=== PATIENT | female | born 1955 | race Hispanic/Latino ===

== ENCOUNTER 2017-02-16 17:25 | Inpatient (IN) | payer BC ==
[2017-02-16] MEDS ORDERED: Sodium Chloride 0.9% 1,000 ML IV STA (17:40)
[2017-02-16 17:41] VITALS: BMI 30.9
[2017-02-16 18:06] LABS: ADD MANUAL DIFF? NO
[2017-02-16 18:13] LABS: BASO # 0.02 K/mm3 (0.0-2.0); BASO % 0.2 % (0.0-3.0); EOS # 1.5 (0.0-0.7); EOS % 14.1 % (1.5-5.0); GRAN # 6.98 (1.4-6.5); GRAN % 67.6 % (50.0-68.0); HEMATOCRIT 34.4 % (36.0-48.0); LYMPH # 1.4 (1.2-3.4); LYMPH % 13.4 % (22.0-35.0); MEAN CELL VOLUME 86.6 fL (80.0-105.0); MEAN CORPUSCULAR HEMOGLOBIN 29.7 pg (25.0-35.0); MEAN CORPUSCULAR HGB CONC 34.3 g/dl (31.0-37.0); MEAN PLATELET VOLUME 9.2 fl (7.0-11.0); MONO # 0.5 (0.1-0.6); MONO % 4.7 % (1.0-6.0); PLATELET COUNT 180 10^3/uL (120.0-450.0); RED CELL DISTRIBUTION WIDTH 13.4 % (11.5-14.5); WHITE BLOOD COUNT 10.3 10^3/ul (4.5-11.0)
[2017-02-16 18:23] LABS: INR 1.05 (0.93-1.08); PARTIAL THROMBOPLASTIN TIME 25.2 Seconds (23.7-30.8)
[2017-02-16 18:30] LABS: ALB/GLOB RATIO 1.2 (1.1-1.8); ALKALINE PHOSPHATASE 109 U/L (38-133); ALT/SGPT 34 U/L (7-56); AST/SGOT 55 U/L (15-39); BILIRUBIN,TOTAL 0.5 mg/dL (0.2-1.3); BLOOD UREA NITROGEN 29 mg/dL (7-21); CALCIUM 9.5 mg/dL (8.4-10.5); CARBON DIOXIDE 26 mmol/L (21-33); CHLORIDE 104 mmol/L (98-107); GFR AFRICAN-AMERICAN > 60; GLUCOSE,RANDOM 108 mg/dL (70-110); MAGNESIUM 1.7 mg/dL (1.7-2.2); POTASSIUM 3.6 mmol/L (3.6-5.0); SODIUM 138 mmol/L (132-148); TOTAL PROTEIN 6.9 g/dL (5.8-8.3)
[2017-02-16 18:50] LABS: LIPASE 2467 U/L (23-300); TROPONIN I < 0.01 ng/mL
--- NOTE | 2017-02-16 18:50 | ED PDOC ---
Arrival/HPI - General Chief Complaint: Abdominal Pain Time Seen by Provider: 02/16/17 17:29 Historian: Patient - History of Present Illness Narrative History of Present Illness (Text): 02/16/17 19:04 A 61 year old female, whose past medical history includes hypertension, presents to the emergency department complaining of several days of mild diarrhea. Patient reports earlier today about 3 hours ago, she developed significant mid epigastric discomfort with some radiation to the back, associated with some diaphoresis. Patient felt mild shortness of breath when pain was worse. Patient notes darker stools with diarrhea but denies any headache, vision changes, upper respiratory symptoms, dysuria, chest pain, nausea, vomiting, fevers, chills or any other complaints at this time. On presentation, pain improved yet still persistent. Time/Duration: < week Symptom Onset: Sudden Symptom Course: Unchanged Activities at Onset: Rest Context: Home Past Medical History - Provider Review Nursing Documentation Reviewed: Yes - Past History Past History: No Previous - Tetanus Immunization Tetanus Immunization: Unknown - Cardiac Hx Cardiac Disorders: Yes Hx Hypertension: Yes - Pulmonary Hx Respiratory Disorders: No - Neurological Hx Neurological Disorder: No - HEENT Hx HEENT Disorder: No - Renal Hx Renal Disorder: No - Endocrine/Metabolic Hx Endocrine Disorders: No - Hematological/Oncological Hx Blood Disorders: No - Integumentary Hx Dermatological Disorder: No - Musculoskeletal/Rheumatological Hx Musculoskeletal Disorders: No - Gastrointestinal Hx Gastrointestinal Disorders: No - Genitourinary/Gynecological Hx Genitourinary Disorders: No - Psychiatric Hx Psychophysiologic Disorder: No Hx Depression: No Hx Emotional Abuse: No Hx Physical Abuse: No Hx Substance Use: No - Surgical History Hx Cholecystectomy: Yes Hx Orthopedic Surgery: Yes - Anesthesia Hx Anesthesia: Yes - Suicidal Assessment Feels Threatened In Home Enviroment: No Family/Social History - Physician Review Nursing Documentation Reviewed: Yes Family/Social History: No Known Family HX Smoking Status: Never Smoked Hx Alcohol Use: No (socially) Hx Substance Use: No Hx Substance Use Treatment: No Allergies/Home Meds Allergies/Adverse Reactions: Allergies No Known Allergies Allergy (Verified 03/22/12 15:34) Home Medications: Home Meds Medication Instructions Recorded Confirmed Losartan [Cozaar] 100 mg PO DAILY 02/16/17 02/16/17 Review of Systems - Physician Review All systems were reviewed & negative as marked: Yes - Review of Systems Constitutional: absent: Fevers, Other (chills) Eyes: absent: Vision Changes ENT: absent: Sore Throat, Rhinorrhea, Sinus Congestion Respiratory: SOB Cardiovascular: absent: Chest Pain Gastrointestinal: Abdominal Pain (mid epigastric discomfort), Diarrhea. absent : Nausea, Vomiting Genitourinary Female: absent: Dysuria Musculoskeletal: Back Pain Neurological: absent: Headache Endocrine: Diaphoresis Physical Exam Vital Signs Reviewed: Yes Vital Signs Temp Pulse Resp BP Pulse Ox 02/16/17 20:08 68 19 134/59 L 99 02/16/17 19:15 74 18 98 02/16/17 17:47 97.1 F L 69 15 145/71 97 Temperature: Afebrile Blood Pressure: Normal Pulse: Regular Respiratory Rate: Normal Appearance: Positive for: Well-Appearing, Non-Toxic, Comfortable Pain Distress: None Mental Status: Positive for: Alert and Oriented X 3 - Systems Exam Head: Present: Atraumatic, Normocephalic Pupils: Present: PERRL Conjunctiva: Present: Normal Mouth: Present: Moist Mucous Membranes Pharnyx: Present: Normal. No: ERYTHEMA, EXUDATE Neck: Present: Normal Range of Motion Respiratory/Chest: Present: Clear to Auscultation, Good Air Exchange. No: Respiratory Distress, Accessory Muscle Use Cardiovascular: Present: Regular Rate and Rhythm, Normal S1, S2. No: Murmurs Abdomen: Present: Tenderness (mild mid epigastric ttp), Normal Bowel Sounds. No : Distention, Peritoneal Signs Back: Present: Normal Inspection Upper Extremity: Present: Normal Inspection. No: Cyanosis, Edema Lower Extremity: Present: Normal Inspection. No: Edema Neurological: Present: GCS=15, CN II-XII Intact, Speech Normal Skin: Present: Warm, Dry, Normal Color. No: Rashes Psychiatric: Present: Alert, Oriented x 3, Normal Insight, Normal Concentration Medical Decision Making ED Course and Treatment: 02/16/17 18:45 Impression: A 61 year old female with diarrhea and mid epigastric discomfort. Differential Diagnosis included but are not limited to: colitis vs. gastritis vs. GI bleed vs. peptic ulcer disease vs. pancreatitis vs.Aortic dissection vs. ACS Plan: -- CT angio disection -- chest xray -- labs -- Urinalysis -- IV fluids, Protonix, Bentyl -- Reassess and disposition Prior Visits: Notes and results from previous visits were reviewed. Patient last reported to the emergency department on 10/24/12 for evaluation of right arm pain with lightheadedness, diaphoresis and palpitations. Patient had stress test arranged as outpatient. Patient was discharged. Progress Notes: EKG: Ordered, reviewed, and independently interpreted the EKG. Rate : 69 BPM Rhythm : NSR Interpretation : Normal interval, normal axis, no ST/T changes Comparison : No previous EKG for comparison. CXR: nad, as read by me. CT Angiography Chest Without and With Intravenous Contrast IMPRESSION: No acute findings. Other findings as above. CT Chest With Intravenous Contrast CT Abdomen and Pelvis With Intravenous Contrast IMPRESSION: No acute findings. Other Findings as above. Dictated and Authenticated by: Stephenie Art MD 02/16/2017 7:45 PM Eastern Time ([place] & [place]) Patient with noted history of abdominal pain. EKG and CE are normal. Labs showing lipase >2400, consistent with pancreatitis. Patient's pain is much better with protonix, IVF, and Bentyl and does not need any analgesia. Given the highly elevated lipase level, the patient will need to be admitted to the hospital for IVF, NPO, and evaluation and treatment of pancreatitis. Case discussed with on-call physician, Dr. Gold for admission to his service. - Lab Interpretations Lab Results: 02/16/17 17:55 02/16/17 17:55 Lab Results 02/16/17 18:58: Alcohol, Quantitative < 10 02/16/17 17:55: Triglycerides 78, Cholesterol 177, LDL Cholesterol Direct 120, HDL Cholesterol 42, Vitamin B12 Pending, Folate Pending 02/16/17 17:55: PT 11.3, INR 1.05, APTT 25.2 02/16/17 17:55: Sodium 138, Potassium 3.6, Chloride 104, Carbon Dioxide 26, Anion Gap 12, BUN 29 H, Creatinine 0.8, Est GFR ( Amer) > 60, Est GFR ( Non-Af Amer) > 60, Random Glucose 108, Calcium 9.5, Magnesium 1.7, Total Bilirubin 0.5, AST 55 H, ALT 34, Alkaline Phosphatase 109, Lactate Dehydrogenase 425, Total Creatine Kinase 81, Troponin I < 0.01, Total Protein 6.9, Albumin 3.8, Globulin 3.1, Albumin/Globulin Ratio 1.2, Lipase 2467 H 02/16/17 17:55: WBC 10.3, RBC 3.97, Hgb 11.8 L, Hct 34.4 L, MCV 86.6, MCH 29.7, MCHC 34.3, RDW 13.4, Plt Count 180, MPV 9.2, Gran % 67.6, Lymph % (Auto) 13.4 L , [place] % (Auto) 4.7, Eos % (Auto) 14.1 H, Baso % (Auto) 0.2, Gran # 6.98 H, Lymph # 1.4, [place] # 0.5, Eos # 1.5 H, Baso # 0.02 I have reviewed the lab results: Yes - RAD Interpretation Radiology Orders: 02/16/17 17:39 ANGIOGRAPHY DISECTION PROTOCOL [CT] Stat CHEST PORTABLE [RAD] Stat - EKG Interpretation Interpreted by ED Physician: Yes Type: 12 lead EKG - Medication Orders Current Medication Orders: Hydromorphone HCl (Dilaudid) 0.5 mg IVP Q4H PRN PRN Reason: Pain, moderate (4-7) Sodium Chloride (Sodium Chloride 0.9%) 1,000 mls @ 125 mls/hr IV .Q8H [facility] Last Admin: 02/16/17 19:59 Dose: 125 mls/hr Magnesium Sulfate 2 gm/ Sodium (Chloride) 104 mls @ 102 mls/hr IVPB ONCE ONE Stop: 02/16/17 20:38 Last Admin: 02/16/17 19:59 Dose: 102 mls/hr Potassium Chloride (Potassium Chloride 20 Meq/100 Ml) 20 meq in 100 mls @ 50 mls/hr IVPB Q2H [facility] Stop: 02/16/17 23:44 Metoclopramide HCl (Reglan) 5 mg IVP Q6H [facility] Last Admin: 02/16/17 19:59 Dose: 5 mg Ondansetron HCl (Zofran Inj) 4 mg IVP Q6H PRN PRN Reason: Nausea/Vomiting Pantoprazole Sodium (Protonix Inj) 40 mg IVP Q12 [facility] Discontinued Medications Dicyclomine HCl (Bentyl) 10 mg PO ONCE STA Stop: 02/16/17 17:42 Last Admin: 02/16/17 17:59 Dose: 10 mg Sodium Chloride (Sodium Chloride 0.9%) 1,000 mls @ 500 mls/hr IV .Q2H STA Stop: 02/16/17 19:39 Last Admin: 02/16/17 17:57 Dose: 500 mls/hr Iohexol (Omnipaque 350 150 Ml) Confirm Administered Dose 150 ml .ROUTE .STK-MED ONE Stop: 02/16/17 17:50 Last Admin: 02/16/17 19:40 Dose: Pantoprazole Sodium (Protonix Inj) 40 mg IVP ONCE STA Stop: 02/16/17 17:42 Last Admin: 02/16/17 17:59 Dose: 40 mg - Scribe Statement The provider has reviewed the documentation as recorded by the Naeem Arriola Provider Scribe Attestation: All medical record entries made by the Jefferyibondina were at my direction and personally dictated by me. I have reviewed the chart and agree that the record accurately reflects my personal performance of the history, physical exam, medical decision making, and the department course for this patient. I have also personally directed, reviewed, and agree with the discharge instructions and disposition. Disposition/Present on Arrival - Present on Arrival Any Indicators Present on Arrival: No History of DVT/PE: No History of Uncontrolled Diabetes: No Urinary Catheter: No History of Decub. Ulcer: No History Surgical Site Infection Following: None - Disposition Have Diagnosis and Disposition been Completed?: Yes Diagnosis: Pancreatitis Disposition: HOSPITALIZED Disposition Time: 19:05 Patient Plan: Admission Condition: FAIR
[2017-02-16] MEDS ORDERED: HYDROmorphone 0.5 mg/0.5 ml ISec IVP PRN (19:04)
[2017-02-16] MEDS ORDERED: Magnesium Sulfate 2 GM in Sodium Chloride 0.9% 100 ML IVPB ONE (19:37)
[2017-02-16 19:50] LABS: CHOLESTEROL 177 mg/dL (130-200)
[2017-02-16] MEDS: Sodium Chloride 0.9% 1,000 ML IV SCH (19:59)
[2017-02-16 20:32] LABS: FREE T4 1.11 ng/dL (0.78-2.19); T4 7.6 ug/dL (5.5-11.0)
[2017-02-16 20:46] LABS: THYROID STIMULATING HORMONE 1.6 mIU/mL (0.46-4.68)
--- NOTE | 2017-02-16 20:49 | HP ---
HISTORY OF PRESENT ILLNESS: The patient is a 61-year-old female who came to the [facility] by [facility] complaining of upper abdominal pain which began today, diarrhea 2 - 3 days ago. This was reported according to the triage. According to the ER physician evaluation, the aj ent presented to the Emergency Room complaining of diarrhea for 2 - 3 days. Last episode was 3 hours ago. The patient developed severe mid epigastric, upper abdominal pain with some radiation to the b ack associated with sweatiness. The patient also complained of some mild shortness of breath with th e pain. The patient also reports some dark stools with the diarrhea. The patient denies any headach e, denies loss of consciousness, denies syncope, denies chest pain. REVIEW OF SYSTEMS: A 13-system review was done. Pertinent positives and negatives dictated above. CODE STATUS: Full code. LIVING WILL AND ADVANCED DIRECTIVE: None. ALLERGIES: None. Height is 5 feet 4 inches. Weight is 118. BMI is 31. HOME MEDICATIONS Cozaar 100 mg daily. SOCIAL HISTORY: Negative for substance abuse. Social alcohol. Denies smoking. OCCUPATIONAL HISTORY: The patient is an employee of [employer]. PAST MEDICAL HISTORY: Significant for hypertension on Cozaar. The patient's past medical history is also significant for history of hypertension, history of hypovitaminosis D, history of dyslipidemia, history of L3 compression fracture in 2011, history of hypertension. The patient's past medical his tory is significant for osteoarthritis, history of dyslipidemia, history of cholecystectomy, history of right knee medial meniscal surgery, history of podiatry surgery for the hammertoe. ALLERGIES: Not known on this. PHYSICAL EXAMINATION: GENERAL: The patient is seen in stretcher #4 in the Emergency Room. T-max is 97.1, heart rate 69, b lood pressure 145/71, respirations 15, O2 sat 97%. The patient was seen in the Emergency Room by the ER physician. HEENT: Head: Normocephalic, atraumatic. HEENT intact. Extraocular movements are intact. [place] conj unctivae, anicteric sclerae. NECK: No neck rigidity. CHEST: Symmetrical. LUNGS: Shows no rales, crackles, or wheezing, positive epigastric periumbilical tenderness noted. Q uestionable bilateral costovertebral angle tenderness. Positive periumbilical tenderness. GENITALIA: Female. RECTAL: Deferred. EXTREMITIES: Shows no clubbing, no cyanosis, no edema. No calf tenderness. No Homans signs. NEUROLOGIC: The patient is alert, awake, oriented x 3. No deficits noted. [place] coma scale was 1 5. Cranial nerves II-XII intact. Speech is normal. Gait examination is not tested. MUSCULOSKELETAL: Shows a body mass index of 31. DIAGNOSTICS: WBC 10.3, hemoglobin and hematocrit 11.8 and 34.4, platelets 180. PT/PTT 11.3, 25.2. Chemistry: Sodium 138, potassium 3.6, chloride 104, CO2 of 26, anion gap 12, BUN 29, creatinine 0.8, GFR greater than 60, glucose 108, calcium 9.5, magnesium 1.7, AST 55, alkaline phosphatase is 109. Troponin is negative. Lipase is 2467. The patient was seen in the Emergency Room by the ER physician. The patient's EKG done in the Emerge ncy Room shows sinus rhythm, some baseline artifact. The patient had chest x-ray done. The patient' s chest x-ray was done in the Emergency Room, official report pending. I would do portable film. Th e patient's EKG was reviewed. The patient was sent for a CT abdomen for dissection protocol, which i s pending. The patient was seen and evaluated in the Emergency Room by Dr. Naranjo. The patient was g iven Protonix. The patient was given IV fluid. The patient was given Bentyl 10 mg. The patient was advised to be admitted. IMPRESSION AND PLAN: A 61-year-old female who presented with history of hypertension, dyslipidemia, presented with several days of episodic diarrhea with sudden onset of increasing and sudden onset of upper abdominal and epigastric discomfort, radiation to back with some shortness of breath and diapho resis. IMPRESSION: 1. Acute pancreatitis with elevated lipase of greater than 2400 2. Mild normocytic anemia. 3. Mild prerenal kidney injury. 4. Possible hypokalemia and hypomagnesemia with low normal potassium and magnesium. 5. Possible hypomagnesemia with low normal potassium. 6. Abdominal pain, probably secondary to pancreas. 7. History of hypertension. 8. Mild normocytic anemia. PLAN: At this time, patient will be admitted. The patient's CAT scan, which is done in the Emergenc y Room and the results will be reviewed when available. The patient has been ordered lipid panel, th yroid panel, B12, folate, vitamin D25 hydroxy, serial amylase, lipase. Serial CMP, LFTs, magnesium, CBC in a.m. GI consultation ordered. The patient has been started on Dilaudid 0.5 mg IV q. 4 p.r.n . The patient is given magnesium sulfate rider times x 1. Potassium riders are ordered. The patient is started on IV Protonix 40 IV q. 12, Reglan 5 mg IV q. 6 hours has been ordered, IV fluids 0.9 nor mal saline at 125 mL an hour ordered, Zofran 4 mg IV q. 6 hours ordered. The patient will be kept n. p.o., out of bed to chair. The patient will be put on NITESH stockings, SCDs. The patient's further ma nagement will be dependent upon the patient's clinical condition, hemodynamic status, and as per aj ent's response to therapeutic intervention, as per patient's diagnostic test results and as per recom mendation by all the physicians involved in the care of the patient. At present, the patient was mo d about the need for hospitalization, which she acknowledged and understands. All questions and conc erns answered. Dictated, electronically signed, not read. Yousif Gold MD cc: [id number] TT: 02/16/2017 20:48:06 kenny
[2017-02-17] MEDS: Sodium Chloride 0.9% 1,000 ML IV SCH ×2 (03:20→12:18)
[2017-02-17 07:14] LABS: ADD MANUAL DIFF? NO
[2017-02-17 07:25] LABS: BASO # 0.02 K/mm3 (0.0-2.0); BASO % 0.4 % (0.0-3.0); EOS # 1.2 (0.0-0.7); EOS % 23.1 % (1.5-5.0); GRAN # 2.66 (1.4-6.5); HEMATOCRIT 32.7 % (36.0-48.0); LYMPH # 1.1 (1.2-3.4); LYMPH % 21.4 % (22.0-35.0); MEAN CELL VOLUME 87.2 fL (80.0-105.0); MEAN CORPUSCULAR HEMOGLOBIN 28.5 pg (25.0-35.0); MEAN CORPUSCULAR HGB CONC 32.7 g/dl (31.0-37.0); MONO # 0.3 (0.1-0.6); MONO % 5.1 % (1.0-6.0); PLATELET COUNT 143 10^3/uL (120.0-450.0); RED CELL DISTRIBUTION WIDTH 13.5 % (11.5-14.5); WHITE BLOOD COUNT 5.3 10^3/ul (4.5-11.0)
[2017-02-17 07:47] LABS: ALB/GLOB RATIO 1.2 (1.1-1.8); ALKALINE PHOSPHATASE 83 U/L (38-133); ALT/SGPT 26 U/L (7-56); AMYLASE 122 U/L (35-125); AST/SGOT 27 U/L (15-39); BILIRUBIN,DIRECT 0.3 mg/dL (0.0-0.4); BILIRUBIN,TOTAL 0.5 mg/dL (0.2-1.3); BLOOD UREA NITROGEN 20 mg/dL (7-21); CALCIUM 8.7 mg/dL (8.4-10.5); CARBON DIOXIDE 21 mmol/L (21-33); CHLORIDE 112 mmol/L (98-107); GFR AFRICAN-AMERICAN > 60; GLUCOSE,RANDOM 95 mg/dL (70-110); LIPASE 145 U/L (23-300); MAGNESIUM 2.1 mg/dL (1.7-2.2); POTASSIUM 3.9 mmol/L (3.6-5.0); SODIUM 139 mmol/L (132-148); TOTAL PROTEIN 5.7 g/dL (5.8-8.3)
--- NOTE | 2017-02-17 08:18 | CT ---
PROCEDURE: CT Angiography Chest, Abdomen and Pelvis with and without intravenous contrast HISTORY: epigas pain, back pain, r/o dissection, PE, coliti COMPARISON: None. TECHNIQUE: Contiguous axial images of the chest, abdomen and pelvis were obtained in the phase of aortic enhancement. A noncontrast enhanced CT of the chest was also obtained to evaluate for possible intramural thrombus. Coronal and sagittal reformats were generated. IV dose administered: 150 cc of Omnipaque 300 Radiation dose: Total exam DLP = 1627 mGy-cm. This CT exam was performed using one or more of the following dose reduction techniques: Automated exposure control, adjustment of the mA and/or kV according to patient size, and/or use of iterative reconstruction technique. FINDINGS: CT ANGIOGRAPHY OF THE CHEST WITH & WITHOUT CONTRAST: AORTA (CHEST AND ABDOMEN): The thoracic and abdominal aorta are unremarkable, without aneurysm, dissection or rupture. No intramural thrombus identified in the thoracic aorta on the non-contrast ct of the chest. The celiac axis, superior mesenteric artery, inferior mesenteric artery and the renal arteries are widely patent. The pelvic arteries are unremarkable. LUNGS: Clear. No nodule, mass or consolidation. MEDIASTINUM: Unremarkable. Normal caliber aorta and pulmonary arterial trunk. No aortic dissection. Normal size heart. LYMPH NODES: Unremarkable. PLEURA: Unremarkable. No pneumothorax. No pleural fluid. BONES: Unremarkable. OTHER FINDINGS: None. CT ANGIOGRAPHY OF THE ABDOMEN AND PELVIS WITH CONTRAST: LIVER: Unremarkable. No gross lesion or ductal dilatation. GALLBLADDER AND BILE DUCTS: Cholecystectomy. PANCREAS: Unremarkable. No gross lesion or ductal dilatation. SPLEEN: Unremarkable. ADRENALS: Unremarkable. No mass. KIDNEYS AND URETERS: Large left renal cyst measuring 5.7 centimeters.. No hydronephrosis. No solid mass. VASCULATURE: Unremarkable. No aortic aneurysm. STOMACH AND BOWEL: Unremarkable. No obstruction. No gross mural thickening. APPENDIX: Normal appendix. PERITONEUM: Unremarkable. No free fluid. No free air. LYMPH NODES: Unremarkable. No enlarged lymph nodes. BLADDER: Unremarkable. REPRODUCTIVE: Calcified leiomyomata in the uterus.. BONES: No acute fracture. OTHER FINDINGS: None. IMPRESSION: No acute pathology.
[2017-02-17 09:05] VITALS: BP 108/49; PULSE 61; RESP 20; TEMP 97.8; O2SAT 97
--- NOTE | 2017-02-17 10:13 | RAD ---
HISTORY: epigastric pain COMPARISON: No prior. FINDINGS: LUNGS: The lungs are well inflated and clear. PLEURA: No significant pleural effusion identified, no pneumothorax apparent. CARDIOVASCULAR: Normal. OSSEOUS STRUCTURES: No significant abnormalities. VISUALIZED UPPER ABDOMEN: Normal. OTHER FINDINGS: None. IMPRESSION: No active pulmonary disease.
--- NOTE | 2017-02-17 10:22 | CON ---
DATE: 02/17/2017 REQUESTING PHYSICIAN: Dr. Gold REASON FOR CONSULTATION: I have been asked to see this 61-year-old female who is admitted to the [facility] with a 1-day history of increasing mid abdominal pain. The patient denies any nausea and vomit ing. Routine blood work in the Emergency Room showed her serum lipase to be elevated at 2467. Her r epeat amylase and lipase this morning are normal. The patient denies excessive alcohol use. 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 She had a cholecystectomy many years ago. Prema nj does have a history of hyperlipidemia, but her serum triglyceride is normal at 78. The patient had rather prompt relief of abdominal pain after conservative treatment in the Emergency Room. The aj ent tells me that she is to follow up with her data entry specialist in the next week or two for her scr eening colonoscopy. PAST MEDICAL HISTORY: Notable for hypertension, hyperlipidemia, degenerative joint disease. PAST SURGICAL HISTORY: Notable for cholecystectomy and hammertoe surgery. SOCIAL HISTORY: She denies cigarette smoking or alcohol use. FAMILY HISTORY: Noncontributory. REVIEW OF SYSTEMS: A 14-point is notable for abdominal pain and diarrhea for the last 5 days intermi ttently. She denies any rectal bleeding, nausea, vomiting. PHYSICAL EXAMINATION: GENERAL: Reveals a well-developed female, lying in bed, in no acute distress. VITAL SIGNS: Reveal temperature of 97.8, blood pressure 108/49, heart rate is 61. HEENT: Reveals sclerae to be white, conjunctivae pink. NECK: Supple. CHEST: Reveals lungs to be clear. HEART: Reveals regular rate and rhythm. ABDOMEN: Soft, nontender. EXTREMITIES: Show no edema. LABORATORY DATA: Reveal sodium 139, chloride 112. Normal AST, ALT, alk phos and amylase and lipase from this morning. CBC shows white blood cell count 5.3, hemoglobin 10.7. IMPRESSION: A 61-year-old female with several days of diarrhea, 1 day of abdominal pain which resolv ed after conservative treatment in the Emergency Room with an elevated lipase level, which has normal ized in 24 hours. Her serum amylase is also normal. Clinically, the patient does not appear to have acute pancreatitis. She does not have any risk factors for pancreatitis. RECOMMENDATIONS: Will advance to a low fat diet. If tolerated, patient can be discharged home with outpatient followup. Mich Washington MD cc: [id number] TT: 02/17/2017 10:22:19 Confirmation # [id number] Dictation # [id number]
[2017-02-17 13:11] LABS: FOLATE > 20.0 ng/mL
--- NOTE | 2017-02-17 20:26 | DS ---
The patient is seen in room 378, bed 2. The patient was earlier seen by Dr. Mich Washington. The patient was started on diet, which at present patient is tolerating. The patient was seen around 11 a.m. thi s morning. The patient is seen lying in the bed. PHYSICAL EXAMINATION: VITAL SIGNS: The patient is afebrile. Heart rate 78-84, blood pressure 138/74, 136/84, respirations 18-20, O2 sat in high 90s. HEAD: Normocephalic, atraumatic. HEENT: Shows pink conjunctivae, anicteric. Dry oral mucosa. NECK: No neck rigidity. CHEST: Kyphosis. LUNGS: Shows no rales, crackles, or wheezing. CARDIOVASCULAR: S1, S2, regular rhythm. ABDOMEN: Soft, significantly decreased epigastric periumbilical tenderness. No rebound tenderness, no costovertebral angle tenderness. GENITALIA: Female. RECTAL: Deferred. EXTREMITIES: Shows no pitting edema, no calf tenderness, no Eric sign. NEUROLOGIC: The patient is alert, awake, oriented x 3. Cranial nerves II-XII are limited. GAIT: Not tested. MUSCULOSKELETAL: Shows an elevated body mass index. VASCULAR: Palpable pulses. DIAGNOSTICS: Reviewed. CBC continued to show some mild anemia. Chemistry is within normal limits. Amylase and lipase are within normal limits. Amylase is down to 145, which was significantly elevate d yesterday. Lipase is normal. CMP were reviewed. The patient was seen by gastroenterology, Dr. Washington. His recommendations were noted. The patient was cleared by gastroenterology, Dr. Washington. After patient tolerated the diet, patient was cleared for ruby fernandez. FINAL IMPRESSION, PLAN, AND DISCHARGE DIAGNOSES: 1. Abdominal pain, etiology undetermined (resolved). 2. Questionable gastritis. 3. Elevated lipase, etiology undetermined. Questionable pancreatitis. 4. Mild normocytic anemia. 5. History of hypertension and hyperlipidemia. 6. Hypovitaminosis D. 7. Elevated body mass index. 8. Status post cholecystectomy. Plan at this time, patient is discharged home on Dexelant 60 mg daily. The patient is advised to fol low up with her old private medical doctor in [facility]. The patient was advised outpatient gastr oenterology evaluation for esophagogastroduodenoscopy and colonoscopy. The patient was advised to re lease all medical records from this hospitalization to the private medical doctor and gastroenterolog y. During this hospitalization, patient understood and acknowledged all the details of her critical condition. All test results were explained by me and Dr. Washington. The patient was advised outpatient _ ____ followup with primary doctor, primary physician and meat grader. All of the above was ex plained to the patient in layman's language and all questions and concerns answered. Time spent in the entire discharge process, more than 45 minutes. Dictated and electronically signed, not read. Yousif Gold MD cc: [id number] TT: 02/17/2017 20:25:38 lorraine
--- NOTE | 2017-02-18 | CARD ---
APPROVED REPORT EKG Measurement Heart [id number] <Conclusion> Normal sinus rhythm Normal ECG
== END 2017-02-17 15:27 | disposition home or self-care (01) | DRG 391 ==
LOC: ED 17:25 → ERH 19:09 → 3RSO 20:15
PROVIDERS: ADMIT Internal Medicine; ATTEND Internal Medicine
DX: R10.13 Epigastric pain (principal); K85.90 Acute pancreatitis without necrosis or infection, unspecified; K29.70 Gastritis, unspecified, without bleeding; I10 Essential (primary) hypertension; E55.9 Vitamin D deficiency, unspecified; D64.9 Anemia, unspecified; E78.5 Hyperlipidemia, unspecified; Z79.899 Other long term (current) drug therapy; Z90.49 Acquired absence of other specified parts of digestive tract; R40.2412 Glasgow coma scale score 13-15, at arrival to emergency department; Z68.30 Body mass index [BMI] 30.0-30.9, adult